=== PATIENT | male | born 1950 | race Caucasian/White ===

== ENCOUNTER → 2016-10-01 | Outpatient (REF) ==
[2016-10-01 18:48] LABS: THYROID STIMULATING HORMONE 0.747 uIU/mL (0.465-4.680)
[2016-10-01 19:32] LABS: PSA-TOTAL 0.48 ng/mL (0-4)
== END ==
LOC: ZLAB.WCH 18:00
PROVIDERS: Internal Medicine
DX: Z01.89 Encounter for other specified special examinations (principal)
CPT/HCPCS: G0103

== ENCOUNTER 2018-03-14 10:13 | Day surgery (SDC) | payer MEDICARE, BC ==
[2018-03-14] VITALS (10 sets, daily range): BP systolic 111–152; BP diastolic 57–77; PULSE 46–75; TEMP 97.8–98.1
[~2018-03-14] VITALS: Ht 177.8 cm; Wt 113.0 kg
[2018-03-14] MEDS ORDERED: PROSCAR 5MG5 MG PO (10:43)
[2018-03-14] MEDS ORDERED: PRAVACHOL10 MG PO (10:44)
[2018-03-14] MEDS ORDERED: ZYRTEC ALLERGY10 MG PO (10:44)
[2018-03-14] MEDS ORDERED: PATANOL OPHTHALM5 ML OU (10:46)
[2018-03-14] MEDS ORDERED: AVALIDE 12.5 MG1 TA1 PO (10:47)
[2018-03-14] MEDS ORDERED: NATURAL MAGNES200 MG PO (10:47)
[2018-03-14] MEDS ORDERED: XOPENEX PE0.31 MG/3 IH (10:48)
[2018-03-14] MEDS ORDERED: ZETIA 10MG TAB10 MG PO (10:48)
[2018-03-14] MEDS ORDERED: B COMPLEX #11 TAB PO (10:49)
[2018-03-14] MEDS ORDERED: PROTONIX 40MG T40 MG PO (10:49)
[2018-03-14] MEDS ORDERED: MASON NATURAL1200 MG PO (10:50)
[2018-03-14] MEDS ORDERED: LUTEIN20 M1 PO (10:50)
[2018-03-14] MEDS ORDERED: MIRALAX PA17 GM/Dose PO (10:52)
[2018-03-14] MEDS ORDERED: FLONASEALLERGY NS (10:52)
[2018-03-14] MEDS ORDERED: MULTI VITAMINS1 TAB PO (10:53)
[2018-03-14] MEDS ORDERED: MASON NATURAL2000 IU PO (10:53)
[2018-03-14] MEDS ORDERED: THE MEDICINE S200 M2 PO (10:53)
[2018-03-14] MEDS ORDERED: PROBIOTIC FORMU1 CAP PO (10:54)
[2018-03-14] MEDS ORDERED: NATURAL FLAX1000 MG PO (10:54)
[2018-03-14] MEDS ORDERED: TURMERIC500 MG PO (10:55)
[2018-03-14] MEDS ORDERED: CIPRO 500MG TA500 MG PO (15:25)
[2018-03-14] MEDS ORDERED: NORCO 325 MG-51 TAB PO (15:26)
[2018-03-14] MEDS ORDERED: DULCOLAX STOOL100 MG PO (15:26)
[2018-03-14] MEDS ORDERED: PYRIDIUM 100MG100 MG PO (15:27)
== END 2018-03-14 17:20 | disposition home or self-care (01) ==
LOC: SDCO 10:13
DX: N20.0 Calculus of kidney (principal); R30.0 Dysuria; R31.0 Gross hematuria; I10 Essential (primary) hypertension; Z79.899 Other long term (current) drug therapy; N40.1 Benign prostatic hyperplasia with lower urinary tract symptoms; N41.1 Chronic prostatitis; G47.33 Obstructive sleep apnea (adult) (pediatric); E66.9 Obesity, unspecified; K21.9 Gastro-esophageal reflux disease without esophagitis
CPT/HCPCS: C1769; C2617; J0690; J2704; J3010; J7120; Q9967